=== PATIENT | female | born 1965 | race Caucasian/White ===

== ENCOUNTER → 2018-10-27 | Outpatient (CLI) | payer OTHER | LOC: COL.PUL 12:17 | DX: J45.50 Severe persistent asthma, uncomplicated (principal) | CPT/HCPCS: J7674 ==

== ENCOUNTER → 2020-07-21 | Outpatient (CLI) | payer OTHER | LOC: COL.RAD 07-17 08:30 | DX: R31.21 Asymptomatic microscopic hematuria (principal) | CPT/HCPCS: Q9967 ==